=== PATIENT | female | born 1965 | race Caucasian/White ===

== ENCOUNTER 2019-12-22 16:54 | Outpatient (CLI) | payer BC, SELFPAY ==
--- NOTE | ~2019-12-22 | XR_ITS ---
EXAMINATION: XR hip LT min 2V INDICATION: Left hip pain TECHNIQUE: Three views of the left hip are obtained. COMPARISON: None available FINDINGS: There is mild hip osteoarthritis. Bone alignment is normal. No fracture is identified. Phle boliths are noted in the left pelvis. The soft tissues are unremarkable. IMPRESSION: 1. Mild hip osteoarthritis without acute abnormality. Reviewed, dictated and finalized at location A. FIELD LABORER
== END 2019-12-22 16:55 | disposition home or self-care (01) ==
LOC: ANHIMG 16:56
PROVIDERS: PCP Internal Medicine; Visit Provider Internal Medicine
DX: M16.12 Unilateral primary osteoarthritis, left hip (principal)
CPT/HCPCS: 73502

== ENCOUNTER 2020-01-19 15:38 | Outpatient (RCR) | payer BC, SELFPAY ==
--- NOTE | 2020-01-19 17:00 | PTOPEVAL ---
PHYSICAL THERAPY EVALUATION AND PLAN OF CARE 01-19-2020 The PT evaluation was completed today for the diagnosis of L leg pain. She has pain in R and L low back, lateral hips and intermittent into L LE to foot. The plan of treatment is scheduled for 1x/week for 4 weeks. Due to her schedule, she requested treatment only once a week. Thank you for referring Lakshmi to [facility]. Please review, sign, date and return this plan of care JERAMY. I agree with and certify that the following plan of care is medically necessary. Referring Physician Date Attending Provider: [place], NIECY *PT Outpatient Evaluation Start: 01/19/20 16:02 Document 01/19/20 16:00 JUANJO (Rec: 01/19/20 17:00 JUANJO [email or web address]) Therapy Assessment Status Assessment Status Assessment Status Evaluation Outpatient Past Medical History Neurological History Hx Neurological Disorders No Significant History Cardiovascular History Hx Cardiac Disorders No Significant History Respiratory History Hx Respiratory Disorders No Significant History Gastrointestinal History Hx Gastrointestinal Disorders No Significant History Genitourinary History Hx Genitourinary Disorders No Significant History Musculoskeletal History Hx Back Pain Yes: this hip and L leg pain Endocrine History Hx Endocrine Disorders No Significant History HEENT History Hx HEENT Disorders No Significant History Other History 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 Hx Radiation Therapy Yes: had 4 radiation treatments April 2018; Hx Other Medical Conditions Yes: reports saw Dr Ballard in Oct 2019, return every 6 months Evaluation Information Problem Diagnosis L leg pain Onset Nov 2019 Subjective Information injection in back Dec 2019- Query Text:As Reported By Patient/ helped decrease pain; Family steroid and muscle relaxer helped pain, improved but still hurts Diagnostic Tests X-Rays For This Problem Yes: L hip arthritis Previous Treatments Previous Treatments For This Problem no previous therapy Prior Level of Function Activity Level (Last 3 Months) Occupation accounts payable- office, computer and phone work; Activity of Daily Living Ability Independent Indoor/Home Mobility Independent Community Mobility Independent Stairs Ability Independent Functional Cognition (Planning, Shopping Independent , Taking Medications) Cooking Yes Cleaning Yes Laundry Yes Shopping
--- NOTE | 2020-01-26 07:56 | PCPTNOTE ---
pt called and canceled today's appt;
--- NOTE | 2020-02-09 15:10 | PCPTNOTE ---
Patient did not show up for scheduled appointment this date.
--- NOTE | 2020-02-16 14:32 | PCPTNOTE ---
Patient called & cancelled scheduled appointment this date due to Covid-19
--- NOTE | 2020-03-02 09:42 | PCPTNOTE ---
PHYSICAL THERAPY DISCHARGE 03-02-2020 Attending Provider: [place], G[employer]ER-C Patient:Lakshmi Boo Date of :1965 Mrs. Boo has not returned for any further treatments since the PT evaluation on 01/19/2020, for the diagnosis of pain in L lower leg. She called and canceled due to COVID 19. Therefore she will be discharged at this time. The goals were not assessed. Thank you for referring Lakshmi to [facility]. Please review, sign, date and return this discharge summary JERAMY. I have been updated about the patient's current status and I agree with discharge from the above service at this time. Referring Physician Date
== END 2020-03-02 12:04 | disposition home or self-care (01) ==
LOC: ANHPT 15:38
PROVIDERS: PCP Internal Medicine; Visit Provider Nurse Practitioner
DX: M79.662 Pain in left lower leg (principal)
CPT/HCPCS: 97161

== ENCOUNTER → 2021-02-16 10:15 | Outpatient (CLI) | payer BC, SELFPAY ==
[2021-02-16 17:57] LABS: SARS-CoV-2 RNA PCR Negative
== END ==
PROVIDERS: PCP Internal Medicine; Visit Provider Internal Medicine
DX: R68.89 Other general symptoms and signs (principal); Z20.822 Contact with and (suspected) exposure to COVID-19
CPT/HCPCS: C9803; U0003; U0005

== ENCOUNTER → 2021-11-27 07:25 | Outpatient (CLI) | payer OTHER, SELFPAY ==
[2021-11-27 14:44] LABS: Influenza A QL RT-PCR Negative (Negative); Influenza B QL RT-PCR Negative (Negative); SARS-CoV-2 RNA PCR Positive
== END ==
PROVIDERS: PCP Internal Medicine; Visit Provider Internal Medicine
DX: R68.89 Other general symptoms and signs (principal); U07.1 COVID-19
CPT/HCPCS: 87502; C9803; U0003; U0005

== ENCOUNTER 2021-12-04 14:23 | Outpatient (CLI) | payer OTHER, SELFPAY ==
[2021-12-04 14:55] LABS: Basophils Percent Auto 0.2 % (0.2-1.2); Eosinophils Percent Auto 0.2 % (0-4.4); Hematocrit 43.2 % (37.0-47.0); Hemoglobin 14.6 g/dL (12.0-15.0); Immature Granulocyte Absolute 0.02 K/mm3 (0.00-0.031); Immature Granulocyte Percent A 0.5 % (0-0.5); Lymphocytes Absolute Auto 0.99 K/mm3 (0.9-3.2); Lymphocytes Percent Auto 22.4 % (18.3-44.2); Mean Corpuscular HGB Conc 33.8 g/dl (32-36); Mean Corpuscular Hemoglobin 29.7 pg (26-34); Mean Platelet Volume 9.8 fl (7.4-10.4); Monocytes Absolute Auto 0.4 K/mm3 (0.1-0.6); Monocytes Percent Auto 9.1 % (2.6-8.5); Neutrophils Percent Auto 67.6 % (45.5-73.1); Platelet Count Result 192 k/mm3 (150-375); Red Blood Count 4.91 M/mm3 (4.2-5.4); Red Cell Distribution Width 13.2 % (11.5-14.5); White Blood Count 4.4 K/mm3 (4.5-10.0)
[2021-12-04 15:08] LABS: Alanine Aminotransferase 59 U/L (4-35); Albumin Level 4.4 g/dL (3.5-5.1); Alkaline Phosphatase 99 U/L (38-126); Anion Gap 8 mmol/L (8-16); Aspartate Amino Transferase 60 U/L (14-36); Bilirubin,Total 0.6 mg/dL (0.2-1.3); Blood Urea Nitrogen 11 mg/dL (7-17); Calcium 9.2 mg/dL (8.4-10.2); Carbon Dioxide 29 mmol/L (22-30); Chloride 104 mmol/L (98-107); Estimated Glomerular Filt Rate > 60; Glucose 138 mg/dL (65-110); Potassium 3.4 mmol/L (3.4-5.0); Sodium 141 mmol/L (137-145)
== END 2021-12-04 14:24 | disposition home or self-care (01) ==
LOC: ANHLAB 14:26
PROVIDERS: PCP Internal Medicine; Visit Provider Nurse Practitioner
DX: R50.9 Fever, unspecified (principal)
CPT/HCPCS: 36415; 80053; 85025; 87040

== ENCOUNTER 2022-10-11 07:19 | Outpatient (CLI) | payer BC, SELFPAY ==
--- NOTE | ~2022-10-11 | XR_ITS ---
EXAMINATION: XR UGIAC w barium swallow DATE: 10/11/2022 07:59 INDICATION: Nausea. TECHNIQUE: The patient drank thick barium, gas-producing crystals, and thin barium. Fluoroscopy of th e esophagus, stomach, and proximal small bowel was performed. Fluoroscopy exposure time was 0.7 minut es. The total number of images was 504. Total dose-area product was 4.112 Gy-cm^2. COMPARISON: None. FINDINGS: There is no mass or stricture of the esophagus. There is decreased primary and secondary es ophageal peristalsis. Abnormal tertiary waves were noted. There is no hiatal hernia. There was no gas troesophageal reflux with provocative maneuvers. The stomach and proximal small bowel show normal fol ding patterns. IMPRESSION: 1. Mild esophageal dysmotility. Reviewed, dictated and finalized at location A. CUTTER
== END 2022-10-11 07:20 | disposition home or self-care (01) ==
LOC: ANHIMG 07:25
PROVIDERS: PCP Internal Medicine; Visit Provider Internal Medicine
DX: R11.0 Nausea (principal)
CPT/HCPCS: 74246

== ENCOUNTER 2024-05-08 15:14 | Outpatient (CLI) | payer OTHER, SELFPAY ==
--- NOTE | ~2024-05-08 | CT_ITS ---
EXAMINATION: CT abdomen pelvis w con DATE: 05/08/2024 15:37 INDICATION: Periumbilical abdominal pain and nausea TECHNIQUE: Computed tomography (CT) of the abdomen and pelvis was performed with 100 mL Omnipaque-350 intravenous contrast. Automated exposure control and iterative reconstruction technique were employe d. The dose-length product was 1035.30 mGy-cm. COMPARISON: MRI dated 09/19/2017 FINDINGS: Mild atelectasis at the bilateral lung bases. Heart size is normal. No pericardial or pleural effusio n. Liver, gallbladder, spleen and pancreas are normal. Postoperative change of prior left adrenalecto my. 3.6 cm and 1.7 cm right adrenal adenomas, the former is increased from 2.8 cm and the latter unch anged, both with diagnostic signal dropout consistent with intracellular lipid on prior CT. Several p arapelvic cysts at both kidneys. Mild left renal atrophy. Retroaortic left renal vein. Bladder, antev erted uterus and bilateral adnexa are unremarkable. Bowels including the appendix are normal. No free intraperitoneal gas or fluid. No pathologically enlarged abdominal or pelvic lymphadenopathy. L5 bur st fracture spanned by an instrumented posterior spinal fusion with bilateral vertical pat and pedicl e screws at L3, L4, S1 and with bilateral iliac screws. IMPRESSION: 1. No acute intra-abdominal/pelvic process. Reviewed, dictated and finalized at location A.
[2024-05-08 15:29] LABS: Estimated Glomerular Filt Rate > 60
== END 2024-05-08 15:15 ==
PROVIDERS: PCP Nurse Practitioner Family; Visit Provider Nurse Practitioner Family
DX: R10.33 Periumbilical pain (principal); R11.0 Nausea
CPT/HCPCS: 74177; Q9967